=== PATIENT | female | born 1995 | race Two or more races ===

== ENCOUNTER 2024-07-22 08:51 | Emergency (ER) | payer OTHER, SELFPAY ==
[2024-07-22 09:09] VITALS: BP 153/78; PULSE 88; RESP 19; TEMP 36.7; O2SAT 98; BMI 27.9
--- NOTE | 2024-07-22 09:16 | XR_ITS ---
Examination: Complete OB ultrasound, less than 14 weeks, transabdominal Date and time of exam: July 22, 2024 1010 hours INDICATIONS: Onset vaginal bleeding beginning today, history miscarriage is Technique: Obstetrical ultrasound images less than 14 weeks performed via transabdominal imaging Findings: A normal shaped single intrauterine gestation is present in the uterus. CRL 0.7 cm corresponds to 6 weeks 4 days gestational age Cardiac motion 122 BPM Adjacent subchorionic hemorrhage 13 x 9 x 9 mm Ultrasonographic survey of visible structures unremarkable. Amniotic fluid volume appears appropriate for this estimated gestational age. Right ovary 3.4 x 2.0 x 2.2 cm arterial flow 20 mm cyst Left ovary 2.6 x 1.3 x 2.2 cm arterial flow IMPRESSION: Viable intrauterine gestation 6 weeks 4 days Given the subchorionic hemorrhage, consider short-term follow-up pelvic sonography.
[2024-07-22 09:38] LABS: Basophils # (Auto) 0.1 Thou/mm3 (0.0-0.2); Basophils % (Auto) 1 % (0-2.5); Eosinophils # (Auto) 0.1 Thou/mm3 (0.0-0.5); Eosinophils % (Auto) 1 % (0-10); Hematocrit 41.4 % (36.0-46.0); Hemoglobin 14.1 g/dL (12.0-16.0); Immature Granulocytes % (Auto) 0 % (0-0); Immature Granulocytes Auto 0.01 Thou/mm3 (0.00-0.00); Lymphocytes # (Auto) 2.4 Thou/mm3 (1.0-4.8); Lymphocytes % (Auto) 27 % (10-50); Mean Corpuscular HGB Conc 34.1 g/dl (31.0-37.0); Mean Corpuscular Hemoglobin 28.3 pg (25.0-35.0); Mean Corpuscular Volume 83 fL (80-100); Monocytes # (Auto) 0.7 Thou/mm3 (0.0-0.8); Monocytes % (Auto) 8 % (0-12); Neutrophils # (Auto) 5.6 Thou/mm3 (1.8-7.7); Neutrophils % (Auto) 63 % (37-80); Nucleated Red Blood Cell % 0 /100 WBC (0); Platelet Count 297 Thou/mm3 (140-440); RDW Standard Deviation 43.8 fL (36.4-46.3); Red Blood Count 4.99 Miln/mm3 (4.00-5.20); White Blood Count 8.8 Thou/mm3 (3.6-11.0)
--- NOTE | 2024-07-22 09:41 | EDNOTE_ITS ---
ED OB Contraction Preg RMI/HPI General Chief complaint: OB/Uterine Contractions Stated complaint: POSSIBLE MISCARRIAGE W/BLEEDING ; 3RD MISCARRY Time Seen by Provider: 07/22/24 08:56 Source: patient Arrival date/time: 07/22/24 08:51 This is a 29-year-old female presented to the emergency department with complaints of mild vaginal bleeding that began 1 day ago. Reports she is currently at least 7 weeks of gestation. . 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 Reports she has a high risk , currently taking aspirin 81 mg referred by her OB to prevent miscarriage. Denies fever, dysuria, flank pain no abdominal pain. Mode of arrival: ambulatory Related Data Home Medications ?Medication ?Instructions ?Recorded ?Confirmed No Known Home Medications 02/07/23 02/07/23 Allergies Allergy/AdvReac Type Severity Reaction Status Date / Time nut - unspecified Allergy Severe Swelling Verified 07/22/24 08:53 of Lip/Tongue/Throat Review of Systems Review of Systems Systems Reviewed: All systems reviewed, normal except as documented Narrative Review of Systems: Gen: No fever, no chills, no weight loss EYES: No discharge, no visual changes, no pain HEENT: No ear pain, no congestion, no sore throat PULM: No shortness of breath, no cough, no congestion CV: No chest pain, no dyspnea on exertion, no palpitations GI: No nausea, no vomiting, no diarrhea, no pain, no constipation : No frequency, no urgency,? no dysuria, + vaginal bleeding Musc/skel: No joint pain, no back pain Skin: No rash? Psyc: No hallucinations, no depression Heme/Lymph: No easy bleeding or bruising tendencies Neuro: No weakness, no headache ED Exam Narrative Physical exam: Gen: No fever, no chills, no weight loss EYES: No discharge, no visual changes, no pain HEENT: No ear pain, no congestion, no sore throat PULM: No shortness of breath, no cough, no congestion CV: No chest pain, no dyspnea on exertion, no palpitations GI: No nausea, no vomiting, no diarrhea, no pain, no constipation : No frequency, no urgency,? no dysuria Musc/skel: No joint pain, no back pain Skin: No rash? Psyc: No hallucinations, no depression Heme/Lymph: No easy bleeding or bruising tendencies Neuro: No weakness, no headache Course Quality Measures none Orders Category Date Time Status US OB <= 14 weeks fetus Stat Exams 07/22/24 09:16 Completed ABO/RH Type Stat Lab 07/22/24 09:25 Completed Beta HCG,Quantitative Stat Lab 07/22/24 09:25 Results CBC Stat Lab 07/22/24 09:25 Completed Comprehensive Metabolic Panel Stat Lab 07/22/24 09:25 Results Urinalysis Stat Lab 07/22/24 10:40 Completed Urine Culture Stat Lab 07/22/24 10:40 Received Vital Signs Vital signs: Vital Signs Temperature 98.1 F 07/22/24 09:09 Pulse Rate 88 07/22/24 09:09 Respiratory Rate 19 07/22/24 09:09 Blood Pressure 153/78 H 07/22/24 09:09 Pulse Oximetry (%) 98 07/22/24 09:09 Oxygen Delivery Method Room Air 07/22/24 09:09 Vaginal Bleeding MDM Narrative MDM Narrative: This is a 29-year-old female presented to the emergency department with complaints of mild vaginal bleeding that began 1 day ago. Reports she is currently at least 7 weeks of gestation. . 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 Reports she has a high risk , currently taking aspirin 81 mg referred by her OB to prevent miscarriage. Denies fever, dysuria, flank pain no abdominal pain. General workup ordered CBC CMP, hCG quant and ultrasound. Patient CBC unremarkable no leukocytosis no anemia no bandemia. CMP electrolyte normal, mild elevation of LFTs. Urinalysis positive however appears to be contaminated patient does not have any dysuria hematuria or suprapubic pain. Patient's ultrasound demonstrates a viable 6-week 4-day intrauterine gestation sac. Also demonstrates a subchronic hemorrhage. The patient's hCG is [id number], Advised patient she can follow-up outpatient for serial hCGs, pelvic ultrasound follow-up. Pelvic rest. Also spoke to the patient in great detail to have a recheck of her LFTs Strict ER precautions given. Patient data External records reviewed:: [facility] previous records Clinical information provided by:: patient Social determinants that could affect healthcare access:: none Patient has the following chronic illnesses:: no How is presenting disease/condition affected by chronic disease/condition?: no chronic disease Evaluation data The following diagnostics were reviewed and interpreted by me:: lab results and radiology exam(s) Lab and/or radiology exams considered but not ordered:: yes Interpretation Summary: Examination: Complete OB ultrasound, less than 14 weeks, transabdominal Date and time of exam: July 22, 2024 1010 hours INDICATIONS: Onset vaginal bleeding beginning today, history miscarriage is Technique: Obstetrical ultrasound images less than 14 weeks performed via transabdominal imaging Findings: A normal shaped single intrauterine gestation is present in the uterus. CRL 0.7 cm corresponds to 6 weeks 4 days gestational age Cardiac motion 122 BPM Adjacent subchorionic hemorrhage 13 x 9 x 9 mm Ultrasonographic survey of visible structures unremarkable. Amniotic fluid volume appears appropriate for this estimated gestational age. Right ovary 3.4 x 2.0 x 2.2 cm arterial flow 20 mm cyst Left ovary 2.6 x 1.3 x 2.2 cm arterial flow IMPRESSION: Viable intrauterine gestation 6 weeks 4 days Given the subchorionic hemorrhage, consider short-term follow-up pelvic sonography. Medications / Prescriptions Medications or Prescriptions considered but not ordered:: no Medication administrations:: no Consultations Consultation(s) initiated? (list below): No Diagnosis Vaginal Bleeding Differential Diagnosis: missed , threatened , dysfunctional uterine bleeding, incomplete , ectopic without intrauterine and vaginal bleeding Most likely diagnosis given after review of the tests above:: Threatned Admission Indicated Admission indicated?: not indicated Admission Request Was there a request for admission?: No Disposition Plan Disposition Plan: Discharge Discharge Attestation Discharge Attestation: The patient and all family members were given an opportunity to ask questions and understood the discharge instructions. Discharge instructions specifically effects, indications for sooner follow up or return to the emergency department, and the expected course of current diagnosis. Patient condition: Stable Discharge Plan Plan Patient Disposition: HOME (Self Care) Patient condition on transfer: Stable Prescriptions/Referrals Prescriptions/Med Rec: No Action No Known Home Medications Referrals: Shukri Chen MD [Primary Care Provider] - In 1 week Problem List Clinical Impression: Threatened , Subchorionic hemorrhage in first trimester Patient/Caregiver Discharge Instructions Discharge Activity: activity as tolerated Education Materials: Bleeding During Early , ED Possible Miscarriage ... Additional Instructions: Your hCG level today is 109,615 -Please have a follow-up ultrasound with your HANDICAPPED TEACHER for follow-up care -Pelvic rest. Continue take your medications as directed. Return to the emergency department there is any worsening symptoms or change in condition. Print Language: Amharic Stand Alone Forms: Lesley Award Info., Patient Portal Info Letter PA/PLASTICS DESIGN ENGINEER Supervising Physician PA/ASA Supervising Physician: Dr Jeffries
[2024-07-22 10:48] LABS: Alanine Aminotransferase 179 U/L (10-49); Albumin, Serum 4.9 gm/dL (3.5-5.0); Albumin/Globulin Ratio 1.9 (1.2-2.2); Alkaline Phosphatase 61 U/L (46-116); Anion Gap 9 (7-16); Aspartate Amino Transferase 78 U/L (0-34); BUN/Creatinine Ratio 8 Ratio (12-20); Beta HCG,Quantitative 109615 mIU/mL (<5.0); Blood Urea Nitrogen 6 mg/dL (9-23); Carbon Dioxide 23.1 mMol/L (20.0-31.0); Chloride 104 mMol/L (98-107); Creatinine (Component) 0.8 mg/dL (0.6-1.3); Estimated Creatinine Clearance 100.4 mL/min (>60); Globulin 2.6 gm/dL (2.3-3.5); Glucose 95 mg/dL (74-106); Osmolality,Calculated 269 (275-295); Potassium 3.8 mMol/L (3.4-5.1); Sodium 136 mMol/L (136-145); Total Protein 7.5 gm/dL (5.7-8.2); eGFR > 60 See Note
[2024-07-22 10:48] LABS: Collection Type, Urine Clean Catch
[2024-07-22 11:14] LABS: Bacteria,Urine 1+; Bilirubin,Urine Negative (Negative); Blood,Urine 3+ (Negative); Color,Urine Yellow (Lt Yel-Yel); Glucose, Urine Negative (Negative); Ketones,Urine Negative (Negative); Leukocyte Esterase,Urine Positive (Negative); Nitrite,Urine Negative (Negative); PH,Urine 5.5 (5.0-7.0); Protein,Urine 1+ (Neg - Trace); RBC,Urine 14 /hpf (0-3); Specific Gravity,Urine 1.029 (1.001-1.035); Squamous Epithelial Cell,Urine 33 /hpf (0-5); Urobilinogen,Urine Negative mg/dL (0.0-1.0); WBC,Urine 48 /hpf (0-5)
[2024-07-22 11:25] LABS: Clarity,Urine Hazy (Clear/Hazy)
[2024-07-22 14:45] LABS: Bilirubin,Total 0.8 mg/dL (0.3-1.2)
== END 2024-07-22 13:14 | disposition home or self-care (01) ==
PROVIDERS: Nurse Practitioner Primary Care; Emergency Provider Emergency Medicine; PCP Family Medicine
DX: O20.0 Threatened abortion (principal); Z3A.01 Less than 8 weeks gestation of pregnancy
CPT/HCPCS: 36415; 76801; 80053; 81001; 84702; 85025; 86900; 86901; 87086; 99284

== ENCOUNTER → 2024-12-16 | Outpatient (CLI) | payer OTHER, SELFPAY ==
[2024-12-16 12:44] LABS: Glucose,1 Hour PP 50gm Dose 123 mg/dL (80-140)
== END | disposition home or self-care (01) ==
LOC: COPL 09:49
PROVIDERS: PCP Family Medicine; Referring Provider Physician Assistant Medical; Visit Provider Physician Assistant Medical
DX: Z34.82 Encounter for supervision of other normal pregnancy, second trimester (principal)
CPT/HCPCS: 36415; 82950

== ENCOUNTER 2025-01-22 05:48 | Observation (INO) | payer OTHER, SELFPAY ==
--- NOTE | 2025-01-21 23:19 | PD.EDRME ---
Rapid Medical Screening Exam RME Arrival date/time: 01/21/25 22:56 Chief Complaint: Skin/Abscess/Foreign Body Time Seen by Provider: 01/21/25 23:14 RME Narrative: 29-year-old female patient, 3 para 0 2, about 31 weeks came in for evaluation regarding pruritus. Is been having pruritus for several days severity moderate denies any rashes. Denies any other complaints. I ordered for CBC CMP and urinalysis we need to rule out cholestasis of
[2025-01-21 23:45] VITALS: BP 117/76; PULSE 72; RESP 18; TEMP 36.6; O2SAT 99
[2025-01-22] VITALS (12 sets, daily range): BP systolic 117–120; BP diastolic 73–81; PULSE 73–96; RESP 15–99; TEMP 36.6–37; O2SAT 96–99; BMI 31.1
[2025-01-22 00:15] LABS: Collection Type, Urine Clean Catch
[2025-01-22 00:21] LABS: Basophils % (Auto) 0 % (0-2.5); Eosinophils # (Auto) 0.2 Thou/mm3 (0.0-0.5); Eosinophils % (Auto) 1 % (0-10); Hematocrit 34.3 % (36.0-46.0); Hemoglobin 11.7 g/dL (12.0-16.0); Immature Granulocytes % (Auto) 1 % (0-0); Immature Granulocytes Auto 0.11 Thou/mm3 (0.00-0.00); Lymphocytes % (Auto) 26 % (10-50); Mean Corpuscular HGB Conc 34.1 g/dl (31.0-37.0); Mean Corpuscular Volume 85 fL (80-100); Monocytes # (Auto) 1.2 Thou/mm3 (0.0-0.8); Monocytes % (Auto) 10 % (0-12); Neutrophils # (Auto) 7.2 Thou/mm3 (1.8-7.7); Neutrophils % (Auto) 62 % (37-80); Nucleated Red Blood Cell % 0 /100 WBC (0); Platelet Count 305 Thou/mm3 (140-440); RDW Standard Deviation 36.8 fL (36.4-46.3); Red Blood Count 4.04 Miln/mm3 (4.00-5.20); White Blood Count 11.7 Thou/mm3 (3.6-11.0)
[2025-01-22 00:53] LABS: Alanine Aminotransferase 216 U/L (10-49); Albumin, Serum 4.3 gm/dL (3.5-5.0); Albumin/Globulin Ratio 1.6 (1.2-2.2); Alkaline Phosphatase 145 U/L (46-116); Anion Gap 11 (7-16); Aspartate Amino Transferase 112 U/L (0-34); BUN/Creatinine Ratio 15 Ratio (12-20); Bilirubin,Total 0.5 mg/dL (0.3-1.2); Blood Urea Nitrogen 9 mg/dL (9-23); Calcium 8.9 mg/dL (8.3-10.6); Calcium (Corrected) 8.9 mg/dL (8.5-10.1); Carbon Dioxide 23.5 mMol/L (20.0-31.0); Chloride 103 mMol/L (98-107); Creatinine (Component) 0.6 mg/dL (0.6-1.3); Estimated Creatinine Clearance 138.5 mL/min (>60); Globulin 2.7 gm/dL (2.3-3.5); Glucose 101 mg/dL (74-106); Osmolality,Calculated 272 (275-295); Potassium 3.9 mMol/L (3.4-5.1); Sodium 137 mMol/L (136-145); eGFR > 60 See Note
[2025-01-22 00:58] LABS: Bacteria,Urine Rare; Bilirubin,Urine Negative (Negative); Blood,Urine Trace (Negative); Clarity,Urine Turbid (Clear/Hazy); Color,Urine Yellow (Lt Yel-Yel); Culture Indicated,Urine Contaminated; Glucose, Urine Trace (Negative); Ketones,Urine Negative (Negative); Leukocyte Esterase,Urine Positive (Negative); Nitrite,Urine Negative (Negative); PH,Urine 5.5 (5.0-7.0); Protein,Urine Trace (Neg - Trace); RBC,Urine 5 /hpf (0-3); Specific Gravity,Urine 1.031 (1.001-1.035); Squamous Epithelial Cell,Urine 24 /hpf (0-5); Urobilinogen,Urine Negative mg/dL (0.0-1.0); WBC,Urine 26 /hpf (0-5)
--- NOTE | 2025-01-22 03:25 | XR_ITS ---
Examination: Abdomen sonogram, Limited Date and time of exam: January 22, 2025 0343 hours INDICATIONS: Diagnosis cholestasis of Technique: Real-time zambrano scale transabdominal sonographic images of the upper abdomen obtained. Findings: Cholelithiasis Normal gallbladder wall Normal common bile duct 0.3 cm Pancreatic head 2.4 cm Liver 15.5 cm fatty infiltration no focal liver lesions Normal hepatopedal portal venous flow Patent IVC IMPRESSION: Cholelithiasis, negative for cholecystitis
--- NOTE | 2025-01-22 04:57 | PRELIM_ITS ---
Right upper quadrant abdominal ultrasound with Doppler and wave Doppler spectral analysis. January 22, 2025 0343 hours Clinical history: Concern for Cholestasis of . Technique: Grayscale and color flow images of the right upper quadrant are provided. Hepatic and portal veins were also imaged with color flow images. Comparison: No prior study is available for comparison. Findings: The liver is normal in echogenicity. No intrahepatic biliary ductal dilatation. Gallstones at the gallbladder neck. No gallbladder wall thickening or pericholecystic fluid is demonstrated. The common bile duct is normal in caliber at 3.1 mm. The pancreas is unremarkable to the extent visualized. The imaged portions of the right kidney are within normal limits. The portal vein is patent with hepatopetal flow with normal wave Doppler spectral analysis. Dawson sign is not available at the time of this report. The hepatic veins are patent with normal wave Doppler spectral analysis. The IVC is patent with normal wave Doppler spectral analysis. Impression: Gallstones at the gallbladder neck without ultrasound evidence of acute cholecystitis. Report Electronically Signed By: Corona Nance 01/22/2025 4:56:26 AM [EST]
[2025-01-22] MEDS: ursodioL 300 MG CAPSULE PO (06:46)
== END 2025-01-22 06:48 | disposition home or self-care (01) ==
PROVIDERS: Nurse Practitioner Family; Admitting Provider Specialist; PCP Family Medicine; Visit Provider Emergency Medicine
DX: O99.613 Diseases of the digestive system complicating pregnancy, third trimester (principal); K80.20 Calculus of gallbladder without cholecystitis without obstruction; Z3A.33 33 weeks gestation of pregnancy
CPT/HCPCS: 36415; 59899; 76705; 80053; 81001; 85025; A9270

== ENCOUNTER 2025-02-25 16:53 | Inpatient (IN) | payer OTHER, SELFPAY ==
[2025-02-25] VITALS (13 sets, daily range): BP systolic 111–124; BP diastolic 51–76; PULSE 59–99; BMI 30.4
[2025-02-25 18:04] LABS: Collection Type, Urine Clean Catch
[2025-02-25 18:05] LABS: Basophils % (Auto) 0 % (0-2.5); Eosinophils # (Auto) 0.1 Thou/mm3 (0.0-0.5); Eosinophils % (Auto) 1 % (0-10); Hematocrit 30.9 % (36.0-46.0); Hemoglobin 10.5 g/dL (12.0-16.0); Immature Granulocytes % (Auto) 1 % (0-0); Immature Granulocytes Auto 0.08 Thou/mm3 (0.00-0.00); Lymphocytes # (Auto) 2.7 Thou/mm3 (1.0-4.8); Lymphocytes % (Auto) 25 % (10-50); Mean Corpuscular Hemoglobin 27.1 pg (25.0-35.0); Mean Corpuscular Volume 80 fL (80-100); Monocytes # (Auto) 0.9 Thou/mm3 (0.0-0.8); Monocytes % (Auto) 8 % (0-12); Neutrophils % (Auto) 65 % (37-80); Nucleated Red Blood Cell % 0 /100 WBC (0); Platelet Count 264 Thou/mm3 (140-440); RDW Standard Deviation 37.2 fL (36.4-46.3); Red Blood Count 3.88 Miln/mm3 (4.00-5.20); White Blood Count 10.8 Thou/mm3 (3.6-11.0)
[2025-02-25 18:08] LABS: Bilirubin,Urine Negative (Negative); Blood,Urine Trace (Negative); Clarity,Urine Clear (Clear/Hazy); Color,Urine Yellow (Lt Yel-Yel); Glucose, Urine Negative (Negative); Ketones,Urine 1+ (Negative); Leukocyte Esterase,Urine Positive (Negative); Nitrite,Urine Negative (Negative); PH,Urine 5.5 (5.0-7.0); Protein,Urine Negative (Neg - Trace); RBC,Urine 3 /hpf (0-3); Specific Gravity,Urine 1.019 (1.001-1.035); Squamous Epithelial Cell,Urine 5 /hpf (0-5); Urobilinogen,Urine Negative mg/dL (0.0-1.0); WBC,Urine 11 /hpf (0-5)
[2025-02-25 18:24] LABS: Fibrinogen 511 mg/dL (175-375); Partial Thromboplastin Time 22.5 Seconds (22.0-36.0); Prothrombin Time 10.5 Seconds (9.0-12.2)
[2025-02-25 18:32] LABS: Amphetamine/Metham Scrn,Ur OB Negative (Negative); Benzoylecgonine Screen, Ur OB Negative (Negative); Opiate Screen,Urine OB Negative (Negative); THC Screen,Urine OB Negative (Negative)
[2025-02-25 18:33] LABS: Alanine Aminotransferase 62 U/L (10-49); Albumin, Serum 3.8 gm/dL (3.5-5.0); Albumin/Globulin Ratio 1.5 (1.2-2.2); Alkaline Phosphatase 134 U/L (46-116); Anion Gap 10 (7-16); Aspartate Amino Transferase 54 U/L (0-34); BUN/Creatinine Ratio 10 Ratio (12-20); Bilirubin,Total 0.6 mg/dL (0.3-1.2); Blood Urea Nitrogen 6 mg/dL (9-23); Calcium (Corrected) 9.2 mg/dL (8.5-10.1); Carbon Dioxide 21.3 mMol/L (20.0-31.0); Chloride 106 mMol/L (98-107); Creatinine (Component) 0.6 mg/dL (0.6-1.3); Estimated Creatinine Clearance 135.9 mL/min (>60); Globulin 2.5 gm/dL (2.3-3.5); Glucose 79 mg/dL (74-106); Osmolality,Calculated 270 (275-295); Potassium 3.5 mMol/L (3.4-5.1); Sodium 137 mMol/L (136-145); Total Protein 6.3 gm/dL (5.7-8.2); Uric Acid 4.4 mg/dL (3.1-7.8); eGFR > 60 See Note
--- NOTE | 2025-02-25 18:57 | PD.LDHP ---
Documentation for date of: 02/25/25 OB Labor/Induct. HPI History of Present Illness Chief complaint: Induction of labor : 3 Term pregnancies: 0 pregnancies: 0 Living children: 0 History of Abortions: Spontaneous and Elective: 2 History of sections: No History of : No Date of last menstrual period: 06/04/24 AGUSTIN: 03/11/25 Gestational age based on last menstrual period: 38 History of present illness: Aria is a 29-year-old presenting for induction of labor at 38 weeks gestation due to cholestasis of . Her estimated due date is 03-11-2025, based on her last menstrual period of 08-Jan-2024. The patient has been diagnosed with cholestasis during this and has been under monitoring. She is currently taking ursodiol 3 times a day for management, along with Benadryl as needed for pruritus. Aria has been receiving regular care at [facility] with Dr. Vuong and has been compliant with her visits. On presentation, Aria's cervical examination revealed she was 2-3 cm dilated and -3 station. heart tones showed a baseline of 145 with moderate variability and present accelerations. The patient's obstetric history includes two previous pregnancies that resulted in abortions/miscarriages (details not provided). She is currently immune to Rubella. ROS: Skin: Positive for pruritus. Otherwise negative except as stated above, limited to OB and pertinent complaints. Labs Narrative: Diagnostic Test Results and Labs: - Panel (09/23/2024): Blood group O positive, antibody screen negative, HIV non-reactive, RPR non-reactive, hepatitis B surface antigen negative, rubella immune - Pap smear (09/23/2024): Within normal limits - Gonorrhea and chlamydia (09/23/2024): Negative - Urinalysis (09/23/2024): Within normal limits - Genetic screening triple screen (09/23/2024): Negative - One-hour glucose tolerance test (12/16/2024): 123 - Group B strep (Date not specified): Negative Past Medical History Surgical History SURGICAL: Negative Section Meds Home Medications and Allergies Home Medications ?Medication ?Instructions ?Recorded ?Confirmed ?Type aspirin 81 mg tablet,delayed 81 mg PO QDAY 01/22/25 01/22/25 History release (Adult Aspirin Regimen) vit no.95-ferrous 1 tab PO QDAY 01/22/25 01/22/25 History fumarate 28 mg-folic acid 800 mcg tablet () Allergies Allergy/AdvReac Type Severity Reaction Status Date / Time No Known Allergies Allergy Verified 01/22/25 06:03 OB Exam Physical Exam Vital signs: Pulse BP 70 111/75 02/25/25 18:33 02/25/25 18:33 Constitutional Constitutional: no acute distress Routine HEENT Exam Head: Present normocephalic and atraumatic Eye: Present EOMI and PERRL ENT: Present mucous membranes moist Routine Neck Exam Neck: Present supple and trachea midline Routine Cardiovascular Exam Cardiovascular: Present RRR Routine Abdominal Exam Abdominal: Present soft and normoactive bowel sounds Detailed Labor and Delivery Exam Dilation (cm): 2 Effacement (%): 50 Cervix position: mid station: -3 Consistency: medium Presentation: Vertex Membranes: intact Baseline heart rate: 145 monitor accelerations: 15x15 monitor decelerations: None Routine Extremities Exam Extremities: Present full ROM Routine Skin Exam Skin: Present intact, dry and warm Routine Neurological Exam Neurological: Present alert, oriented X3 and CN II-XII intact Routine Psychiatric Exam Psychiatric: Present normal affect and normal thought process OB Results Labs 02/25/25 17:52 02/25/25 17:52 Labs: Short CBC 02/25/25 Range/Units 17:52 WBC 10.8 (3.6-11.0) Thou/mm3 Hgb 10.5 L (12.0-16.0) g/dL Hct 30.9 L (36.0-46.0) % Plt Count 264 D (140-440) Thou/mm3 BMP 02/25/25 17:52 Sodium 137 Potassium 3.5 Chloride 106 Carbon Dioxide 21.3 BUN 6 L Creatinine 0.6 Glucose 79 Calcium 9.0 Liver Function 02/25/25 Range/Units 17:52 Total Bilirubin 0.6 (0.3-1.2) mg/dL AST 54 H (0-34) U/L ALT 62 H (10-49) U/L Alkaline Phosphatase 134 H (46-116) U/L Albumin 3.8 (3.5-5.0) gm/dL Urine 02/25/25 Range/Units 17:40 Urine Color Yellow (Lt Yel-Yel) Urine Clarity Clear (Clear/Hazy) Urine pH 5.5 (5.0-7.0) Ur Specific [place] 1.019 (1.001-1.035) Urine Protein Negative (Neg - Trace) Urine Glucose (UA) Negative (Negative) OB Assessment & Plan Assessment and Plan (1) Cholestasis during in third trimester: Status: Acute Assessment and plan: Cholestasis of : - Diagnosed with cholestasis in current - On ursodiol 3 times a day for management - Benadryl as needed for pruritus - Induction of labor initiated at 38 weeks gestation due to potential risks Labor Induction: - Last menstrual period: January 08, 2024 - Estimated due date: March 11, 2025 - Cervical exam: 2-3 cm dilation, -3 station - heart rate: 145 bpm baseline, moderate variability, accelerations present Plan: - Admit to inpatient labor and delivery - Establish IV access with Lactated Ringer's at 125 cc/hour - Obtain labs: CBC, type and screen, RPR, comprehensive metabolic profile, LDH, and uric acid - Initiate continuous maternal- monitoring - Begin cervical ripening with misoprostol - Proceed to oxytocin administration when cervical ripening achieved - Offer epidural analgesia when desired by patient - Provide IV pain management as per unit protocol - Anticipate vaginal delivery
[2025-02-25 18:58] LABS: Syphilis Nonreactive (Nonreactive)
[2025-02-25] MEDS: MISOPROSTOL 50 mCg TABLET PO ×2 (19:31→23:33)
[2025-02-26] VITALS (182 sets, daily range): BP systolic 91–131; BP diastolic 50–84; PULSE 48–122; RESP 16–22; TEMP 36.6–37.3; O2SAT 90–100
[2025-02-26] MEDS: RINGERS LACTATED 1000 ML 1,000 ML 100 ML IV ×3 (00:35→17:39)
[2025-02-26] MEDS: fentaNYL CIT INJ 50 mCg/ML AMP 2ML 100 MCG IVP ×2 (03:51→06:09)
[2025-02-26] MEDS: MISOPROSTOL 50 mCg TABLET PO ×2 (06:53→11:30)
--- NOTE | 2025-02-26 08:41 | PD.LDPN ---
Documentation for date of: 02/26/25 OB Labor Progress Note Pain Control Pain control: tolerating well Pelvic Exam Dilation (cm): 3 Effacement (%): 60 station: -2 Amniotic membrane status: Intact Contractions Monitor mode: External Contraction frequency: 1.5-4 Contraction pattern: Coupling Contraction intensity: Mild Status status: Category l Assessment and Plan Comments: Continue current plan, will proceed to oxytocin Patient can have epidural when desired
[2025-02-26] MEDS: ursodioL 300 MG CAPSULE PO ×2 (08:45→17:39)
[2025-02-26] MEDS: OXYTOCIN in NS 30 units 30 UNIT/500 ML BAG IV (15:32)
[2025-02-26] MEDS: ONDANSETRON INJ 2 MG/ML INJ 2 ML 4 MG IVP (17:39)
[2025-02-26 19:56] LABS: Hepatitis B Surface Antigen Non Reactive (Non React); Rubella, IgG Antibody Reactive (Immune)
[2025-02-26] MEDS: MINERAL OIL 30 ML UDC TOP (20:20)
[2025-02-26] MEDS: OXYTOCIN in NS 20 units 20 UNIT/1,000 ML BAG 125 UNIT IV (20:26)
[2025-02-26] MEDS: METHYLERGONOVINE INJ 0.2 MG/ML VIAL IM (20:28)
[2025-02-26] MEDS: BENZO/LANO/ALOE (Dermoplast) 60 GM CAN 1 SPRAY TOP (20:32)
[2025-02-26] MEDS: TRANEXAMIC ACID 1,000 MG IVPB 1,000 MG/100 ML BAG 200 MG IV (20:39)
--- NOTE | 2025-02-26 21:10 | OBDSUM_ITS ---
Data (Tran) Data Hx Section: No : 3 Term: 0 : 0 Livin Abortions: Spontaneous & Theraputic: 2 Delivery Data (Tran) Labor Data Initiation of labor: Induction Induction/Augmentation Agent: Cytotec-PO, Pitocin and Artificial ROM ROM date: 02/26/25 ROM time: 18:31 Amniotic membrane rupture type: Artificial Amniotic fluid description: Clear Delivery Data Onset of labor date: 02/26/25 Onset of labor time: 11:00 Complete dilation date: 02/26/25 Complete dilation time: 20:10 delivery date: 02/26/25 Chamberlain delivery time: 20:23 Placenta delivery date: 02/26/25 Placenta delivery time: 20:26 Stage 1 total time: Labor - Stage 1 Duration 9 hours and 10 minutes Delivered by: fozia Delivery nurse: scot holt rn. Gumaroorn nurse: medhat andersen rn. Billet Worker at delivery: Yes (dr. johnson) Support person(s) at delivery: fob Other staff at delivery: vaishali flores RN Delivery Method Delivery method: Normal Vaginal Delivery Presentation: Vertex Anesthesia Type Anesthesia Type: Epidural Placenta Placenta delivery description: Spontaneous Cord blood sent to lab: Yes cord blood collection: Cord Blood Type Episiotomy Episiotomy description: None Lacerations #1: Perineal: 1st degree Vaginal: 1st degree Periurethral: Superficial periurethral lacerations with superficial oozing Labial: Left and right labial lacerations with oozing repaired Cervical: None EBL Estimated blood loss (ml): 400 Umbilical Cord cord description: 3 Vessels Data (Tran) Chamberlain Data Chamberlain's gender: Male Identification band number: [id number] weight (gms): 3315 g Weight (pounds): 7 lbs and 4.9 ozs 1 minute: 9 5 minutes: 9
--- NOTE | 2025-02-26 21:12 | ESOP_ITS ---
Operative Note - INSTRUMENT REPAIRER HELPER Procedure Date of procedure: 02/26/25 Procedure Performed: Vaginal laceration repaired in the delivery room Indication: Multiple superficial lacerations status post vaginal delivery Anesthesia type: Epidural Procedure description: After the was delivered and the placenta was expelled the perineum was observed. A first-degree midline perineal laceration was noted. Multiple other lacerations were identified including right sulcus, left periurethral as well as right and left labial. The individual lacerations were repaired separately using a combination of 2-0 Vicryl and 3-0 Vicryl. Initially a vaginal packing was placed and a Thomas catheter was placed. However due to the stretch effect of the vaginal packing the bleeding actually got worse. The vaginal packing was now removed and additional sutures were placed from points of hemorrhage. Ultimately it was decided to take the patient back to the operating room. She was given 1 g of tranexamic acid and 2 g of Ancef. However before we could take her back to the OR for repair the oozing stopped. It was decided to hold the procedure at this time. Specimen: none Estimated blood loss (ml): 400 Complications: none Diagnosis Discharge Diagnosis (1) Cholestasis during in third trimester: Status: Acute (2) Vaginal delivery: Status: Acute Problem List Completed Was Problem List Reviewed/Reconciled?: Yes
[2025-02-26] MEDS: ceFAZolin/D5W 2 GM IV 2 GM/100 ML BAG IV (21:19)
[2025-02-26] MEDS: METOCLOPRAMIDE INJ 5 MG/ML VIAL 2 ML 10 MG IVP (21:55)
[2025-02-27 04:30] VITALS: BP 107/69; PULSE 88; RESP 16; TEMP 36.8; O2SAT 96
[2025-02-27] MEDS: ceFAZolin 2 GM in SODIUM CHLORIDE 0.9% 100 ML IV (05:16)
[2025-02-27 05:56] LABS: Basophils % (Auto) 0 % (0-2.5); Eosinophils % (Auto) 0 % (0-10); Hematocrit 29.3 % (36.0-46.0); Hemoglobin 9.8 g/dL (12.0-16.0); Immature Granulocytes % (Auto) 1 % (0-0); Immature Granulocytes Auto 0.11 Thou/mm3 (0.00-0.00); Lymphocytes # (Auto) 2.1 Thou/mm3 (1.0-4.8); Lymphocytes % (Auto) 13 % (10-50); Mean Corpuscular HGB Conc 33.4 g/dl (31.0-37.0); Mean Corpuscular Hemoglobin 26.9 pg (25.0-35.0); Mean Corpuscular Volume 81 fL (80-100); Monocytes # (Auto) 1.1 Thou/mm3 (0.0-0.8); Monocytes % (Auto) 7 % (0-12); Neutrophils # (Auto) 12.9 Thou/mm3 (1.8-7.7); Neutrophils % (Auto) 80 % (37-80); Nucleated Red Blood Cell % 0 /100 WBC (0); Platelet Count 239 Thou/mm3 (140-440); Red Blood Count 3.64 Miln/mm3 (4.00-5.20); White Blood Count 16.2 Thou/mm3 (3.6-11.0)
--- NOTE | 2025-02-27 06:44 | PD.LDDS ---
DS: Providers Provider Date of admission: 02/25/25 16:53 Primary care physician: Shukri Chen MD Admitting Provider: Chato Bañuelos MD Attending Provider on Admission: Félix Vuong MD Consults: 02/26/25 23:49 Referral Routine Comment: Attending Provider on DC: Félix Vuong MD Discharging Provider: Félix Vuong MD DS: Diagnosis Problem List Completed Was Problem List Reviewed/Reconciled?: Yes Summary/Hosp Course Brief History: Aria is a 29-year-old presenting for induction of labor at 38 weeks gestation due to cholestasis of . Her estimated due date is 03-11-2025, based on her last menstrual period of 08-Jan-2024. The patient has been diagnosed with cholestasis during this and has been under monitoring. She is currently taking ursodiol 3 times a day for management, along with Benadryl as needed for pruritus. Aria has been receiving regular care at [facility] with Dr. Vuong and has been compliant with her visits. On presentation, Aria's cervical examination revealed she was 2-3 cm dilated and -3 station. heart tones showed a baseline of 145 with moderate variability and present accelerations. The patient's obstetric history includes two previous pregnancies that resulted in abortions/miscarriages (details not provided). She is currently immune to Rubella. ROS: Skin: Positive for pruritus. Otherwise negative except as stated above, limited to OB and pertinent complaints. Peripartum Data Delivery Method: Normal Vaginal Delivery Episiotomy Description: None Time Spent with Patient Time attestation: Total time spent providing and/or coordinating discharge services: Exam Vital Signs Temp Pulse Resp BP Pulse Ox O2 Del Method 98.2 F 88 16 107/69 96 Room Air 02/27/25 04:30 02/27/25 04:30 02/27/25 04:30 02/27/25 04:30 02/27/25 04:30 02/27/25 04:30 Discharge Plan Plan Patient Disposition: HOME (Self Care) Patient condition on transfer: Stable Prescriptions/Referrals Prescriptions/Med Rec: New ibuprofen 600 mg tablet 600 mg PO Q6H PRN (Reason: pain) Qty: 30 0RF Continued PNV cmb#95-ferrous fumarate-FA [] 28 mg iron- 800 mcg tablet 1 tab PO QDAY Discontinued aspirin [Adult Aspirin Regimen] 81 mg tablet,delayed release (DR/EC) 81 mg PO QDAY ursodiol 300 mg capsule 300 mg PO BID Patient Comments: TAKE 1 CAPSULE BY MOUTH TWICE A DAY Referrals: Shukri Chen MD [Primary Care Provider] - Patient/Caregiver Discharge Instructions Discharge Activity: activity as tolerated Other Discharge Activity Instructions:: Follow up office 6 weeks. Print Language: Sinhala Stand Alone Forms: Lesley Award Info., Patient Portal Info Letter Planned Discharge Date 02/27/25
--- NOTE | 2025-02-27 06:46 | ESPR_ITS ---
RE: LAVELL GARRIDO : 1995 DATE OF SERVICE: 02/27/2025 day #1. The patient denies any problem or complaint. She is voiding. She is ambulating. She is tolerating diet. She is passing flatus. She denies any excessive vaginal bleeding. She denies any dizziness or lightheadedness. She denies any chest pain, palpitation, shortness of breath or lower extremity pain. OBJECTIVE: Vital Signs: Blood pressure 107/69, heart rate 88, respirations 16, temperature is 98.2, pulse oximetry is 96% on room air. Lungs: Clear to auscultation bilaterally. Heart: Regular rate and rhythm. Abdomen: Fundus is firm. Extremities: Nontender. Hemoglobin pre-delivery is 10.5, post-delivery is 9.8. ASSESSMENT: day #1, status post spontaneous vaginal delivery. PLAN: Discharge home when the baby is cleared. Discharge instructions given. Follow up in the office in 6 weeks. DT: 06:37:01 TT: 06:45:00 Ref: [id number] - TID: [id number]
[2025-02-27 08:00] VITALS: BP 112/64; PULSE 86; RESP 18; TEMP 36.7; O2SAT 99
[2025-02-27] MEDS: DOCUSATE SOD 100 MG CAPSULE PO (08:45)
[2025-02-27] MEDS: IBUPROFEN TAB 400 MG TABLET 800 MG PO (08:45)
[2025-02-27] MEDS: ursodioL 300 MG CAPSULE PO (08:45)
[2025-02-27 12:00] VITALS: BP 113/78; PULSE 82; RESP 17; TEMP 36.8; O2SAT 97
[2025-02-27] MEDS: ceFAZolin/D5W 2 GM IV 2 GM/100 ML BAG IV (13:33)
[2025-02-27 15:20] VITALS: BP 105/66; PULSE 76; RESP 18; TEMP 37.2; O2SAT 98
[2025-02-27 20:05] VITALS: BP 113/73; PULSE 91; RESP 17; TEMP 36.4; O2SAT 98
== END 2025-02-27 22:08 | disposition home or self-care (01) | DRG 807 ==
LOC: S4SX 02-26 20:58 → S4NX 02-26 23:35
PROVIDERS: Admitting Provider Obstetrics & Gynecology; PCP Family Medicine; Visit Provider Specialist
DX: O26.643 Intrahepatic cholestasis of pregnancy, third trimester (principal); Z37.0 Single live birth; K76.89 Other specified diseases of liver; Z3A.38 38 weeks gestation of pregnancy; O70.0 First degree perineal laceration during delivery; O71.82 Other specified trauma to perineum and vulva
CPT/HCPCS: 36415; 59409; 80053; 80307; 81001; 84550; 85025; 85384; 85610; 85730; 86762; 86780; 86850; 86900; 86901; 87340; 94762; J0689; J0690; J2210; J2405; J2590; J2765; J2795; J3010; J3490; J7050; J7120; A9270